=== PATIENT | female | born 1935 | race American Indian/Alaskan Native ===

== ENCOUNTER 2017-12-15 13:51 | Outpatient (CLI) | payer MEDICARE ==
--- NOTE | 2017-12-16 15:32 | Mammography Report ---
BONE DEXA:12/15/17 13:51:00 CLINICAL: Postmenopausal. COMPARISON: 04/02/16 TECHNIQUE: Two site bone DEXA performed on an Hologic scanner. FINDINGS: The average BMD of the lumbar spine L1-L4 is 0.794g/cm squared with a T-score of -2.3 and a Z-score of +0.5. This compares to 0.792g/cm squared on the last exam and represents a +0.3% change from the previous baseline. The average BMD of the left hip is 0.814g/cm squared with a T-score of -1.0 and a Z-score of +1.2. This compares to 0.870g/cm squared on the last exam and represents a -6.4% change from the previous baseline. The left femoral neck BMD is 0.705g/cm squared with a T score of -1.3 and a Z score of +1.1. IMPRESSION: 1. WHO classification: Osteopenia with increased fracture risk based on spine and left femoral neck measurements. 2. A slight improvement in spine BMD and a moderate decline in left hip BMD compared to the previous exam. RECOMMENDATION: Clinical correlation and routine screening. DEFINITIONS: BMD = Bone Mineral Density T-score = BMD related to mean peak bone mass of young adult (mean expressed in Standard Deviation) Z-score = Age matched BMD expressed in SD World Health Organization (WHO) Diagnostic Criteria Normal T-score > -1 SD Osteopenia T-score between -1 and -2.4 SD Osteoporosis T-score -2.5 SD or below NOTE: BMD is not the only risk factor for fracture; also consider factors such as the patient's age, risk of falling, previous osteoporotic fracture, family history of osteoporotic fractures, current smoker, and low body weight. Z-scores are not calculated if >80 years of age.
== END 2017-12-15 13:52 | disposition home or self-care (01) ==
LOC: SPVWC 13:51
PROVIDERS: ATTEND Internal Medicine
DX: M85.88 Other specified disorders of bone density and structure, other site (principal); F17.210 Nicotine dependence, cigarettes, uncomplicated; Z78.0 Asymptomatic menopausal state
CPT/HCPCS: 77080